=== PATIENT | female | born 2000 | race Caucasian/White ===

== ENCOUNTER 2018-03-25 01:40 | Emergency (ER) | payer MEDICAID ==
[~2018-03-25] VITALS: Ht 165.1 cm; Wt 65.8 kg
[2018-03-25 01:47] VITALS: BP 136/94
[2018-03-25] MEDS ORDERED: KETOROLAC 30 MG/ML VIAL IM ONE (03:35)
[2018-03-25 04:30] VITALS: BP 123/87
== END 2018-03-25 04:30 | disposition home or self-care (01) ==
LOC: MED 01:40
DX: R51 Headache (principal); M54.2 Cervicalgia; Z88.5 Allergy status to narcotic agent
CPT/HCPCS: 81002; 81025; 93005; 96372; 99283; J1885

== ENCOUNTER 2019-02-18 00:40 | Emergency (ER) | payer MEDICAID, OTHER ==
[~2019-02-18] VITALS: Ht 165.1 cm; Wt 78.0 kg
[2019-02-18 00:42] VITALS: BP 129/77
--- NOTE | 2019-02-18 00:54 | NUR ---
PT AMBULATED TO BED #2
--- NOTE | 2019-02-18 01:05 | NUR ---
18 Y/O F PRESENTS TO ED WITH C/O INTERMINTENT ABDOMINAL CRAMPING X1 WEEK, WORSENING YESTERDAY. AAOX4. 9/10 PAIN LOCATED AT LOWER ABDOMEN. PER PT "I HAD LIGHT PINK BLEEDING WHEN I WENT TO THE RESTROOM." LPM 09/02/18. PT A2. ABDOMEN SOFT AND NON-TENDER. BOWEL SOUNDS PRESENT X4 QUADRANTS. PT FAMILY AT BEDSIDE. WILL CONTINUE TO MONITOR.
--- NOTE | 2019-02-18 01:25 | NUR ---
SPECIMEN TAKEN TO LAB
--- NOTE | 2019-02-18 02:23 | NUR ---
ULTRASOUND AT BEDSIDE.
--- NOTE | 2019-02-18 02:47 | NUR ---
PT AWAKE AND ALERT. VSS. WILL CONTINUE TO MONITOR.
[2019-02-18 03:40] VITALS: BP 113/64
--- NOTE | 2019-02-18 03:40 | NUR ---
Patient discharged with v/s stable. Written and verbal after care instructions given and explained. Patient alert, oriented and verbalized understanding of instructions. Ambulatory with steady gait. All questions addressed prior to discharge. ID band removed. Patient advised to follow up with PMD. Rx of flagyl given. Patient educated on indication of medication including possible reaction and side effects. Opportunity to ask questions provided and answered.
== END 2019-02-18 03:40 | disposition home or self-care (01) ==
LOC: MED 00:40
DX: O23.591 Infection of other part of genital tract in pregnancy, first trimester (principal); N76.0 Acute vaginitis; B96.89 Other specified bacterial agents as the cause of diseases classified elsewhere; Z3A.12 12 weeks gestation of pregnancy; Z88.5 Allergy status to narcotic agent
CPT/HCPCS: 76801; 81002; 81025; 87210; 99284; Q0092

== ENCOUNTER 2019-05-24 17:30 | Emergency (ER) | payer OTHER ==
[~2019-05-24] VITALS: Ht 165.1 cm; Wt 82.6 kg
[2019-05-24 17:42] VITALS: BP 135/70
--- NOTE | 2019-05-24 17:50 | NUR ---
PT AMBULATED TO ER BED 03
--- NOTE | 2019-05-24 18:04 | NUR ---
HR 158, LOCATED ON LRQ
--- NOTE | 2019-05-24 18:15 | NUR ---
LAB AT BEDSIDE
--- NOTE | 2019-05-24 18:15 | NUR ---
C/O VAGINAL SPOTTING UPON WIPING X TODAY. NO PAIN WITH BLEEDING. DENIES N/V/D. PT UNSURE EXACT LMP, STATES SHE BELIEVES IT IS IN DECEMBER. PT STATES APPROX 25 WEEKS . 3, 2 PREVIOUS STILLBORN. UNSURE BLOOD TYPE. PT ADDS LOWER BACK DISCOMFORT 3/10 X 2 WEEKS. DENIES DYSURIA.
--- NOTE | 2019-05-24 18:23 | NUR ---
PT HR 102, RR 20. PT ALERT AND AWAKE, POSITIONED IN BED FOR COMFORT
--- NOTE | 2019-05-24 18:34 | NUR ---
US AT BEDSIDE
[2019-05-24 18:44] LABS: BASOPHILS % (AUTO) 0.2 % (0.0-2.0); EOSINOPHILS # (AUTO) 0.1 K/uL (0-0.4); EOSINOPHILS % (AUTO) 0.8 % (0.0-4.0); HEMATOCRIT 34.5 % (36-48); HEMOGLOBIN 11.3 g/dL (12.0-16.0); LYMPHOCYTES # (AUTO) 1.4 K/uL (2.5-16.5); LYMPHOCYTES % (AUTO) 9.8 % (20.5-51.1); MEAN CORPUSCULAR HEMOGLOBIN 28 pg (27-31); MEAN CORPUSCULAR HGB CONC 33 g/dL (33-37); MEAN CORPUSCULAR VOLUME 84.9 fL (80-94); MONOCYTES # (AUTO) 0.9 K/uL (0.8-1.0); MONOCYTES % (AUTO) 5.8 % (1.7-9.3); NEUTROPHILS # (AUTO) 12.4 K/uL (1.8-7.7); NEUTROPHILS % (AUTO) 83.4 % (42.2-75.2); PLATELET COUNT (AUTO) 270 K/uL (140-450); RED BLOOD CELL COUNT(AUTO) 4.06 MIL/uL (4.20-5.40); RED CELL DISTRIBUTION WIDTH 14.3 % (11.6-13.7); WHITE BLOOD COUNT (AUTO) 14.8 K/uL (4.5-11.0)
[2019-05-24 19:08] LABS: BILIRUBIN,URINE NEGATIVE (NEGATIVE); BLOOD, URINE TRACE-L (NEGATIVE); COLOR,URINE YELLOW (YELLOW); LEUKOCYTE ESTERASE ,URINE 1+ (NEGATIVE); NITRITE, URINE NEGATIVE (NEGATIVE); PH,URINE 6.5 (5.0-9.0); UGLUCOSE NEGATIVE (NEGATIVE)
--- NOTE | 2019-05-24 19:08 | NUR ---
RECEIVED REPORT FORM MATILDE CONNELL. WILL CONT CARE AT THIS TIME.
[2019-05-24 19:12] LABS: APPEARANCE,URINE HAZY (CLEAR)
[2019-05-24 19:24] LABS: RBC,URINE NONE SEEN /HPF (0-5)
[2019-05-24 21:47] VITALS: BP 98/50
== END 2019-05-24 21:47 | disposition home or self-care (01) ==
LOC: MED 17:30
DX: O23.42 Unspecified infection of urinary tract in pregnancy, second trimester (principal); Z3A.25 25 weeks gestation of pregnancy; Z88.5 Allergy status to narcotic agent
CPT/HCPCS: 36415; 76805; 81001; 81025; 84702; 85025; 86900; 86901; 87086; 99284; Q0092